=== PATIENT | male | born 1995 | race Caucasian/White ===

== ENCOUNTER 2018-12-18 21:08 | Emergency (ER) | payer SELFPAY ==
[~2018-12-18] VITALS: Ht 177.8 cm; Wt 76.4 kg
[2018-12-18 21:10] VITALS: BP 133/76
--- NOTE | 2018-12-18 21:13 | NUR ---
TO LOBBY, VSS.
--- NOTE | 2018-12-18 23:35 | NUR ---
PT CALLED FOR BED, NO RESPONSE AT THIS TIME WILL ATTEMPT AGAIN LATER
--- NOTE | 2018-12-18 23:45 | NUR ---
NO ANSWER AT 5 AND 3652. PATIENT LEFT WITHOUT BEING SEEN BY DR. WINN. NO FURTHER CARE PROVIDED FOR PATIENT.
== END 2018-12-18 23:35 | disposition left against medical advice (07) ==
LOC: MED 21:08
DX: K08.89 Other specified disorders of teeth and supporting structures (principal); Z53.21 Procedure and treatment not carried out due to patient leaving prior to being seen by health care provider